=== PATIENT | female | born 1950 | race Caucasian/White ===

== ENCOUNTER → 2017-04-08 | Outpatient (CLI) | payer MEDICARE ==
[~2017-04-08] MED LIST: DENOSUMAB 60 MG/ML 1 ML SYRINGE SQ NR
[2017-04-08 10:29] VITALS: BP 162/96; PULSE 83; RESP 16; TEMP 98.3
== END | disposition home or self-care (01) ==
LOC: PROCWHC3 10:11
PROVIDERS: ATTEND Family Medicine
DX: M81.0 Age-related osteoporosis without current pathological fracture (principal)
CPT/HCPCS: 96372; J0897

== ENCOUNTER 2018-11-27 17:04 | Emergency (ER) | payer MEDICARE ==
[2018-11-27 17:21] VITALS: BP 164/123; PULSE 92; RESP 16; TEMP 98.4
--- NOTE | 2018-11-27 18:16 | XR ---
EXAMINATION TYPE: XR hand complete RT DATE OF EXAM: 11/27/2018 COMPARISON: NONE HISTORY: Thumb pain after fall TECHNIQUE: 3 views FINDINGS: There is nondisplaced transverse fracture across the proximal shaft of the proximal phalanx of the right thumb. There is no significant displacement. There is slight impaction. There is no dis location. There is spurring at the IP joint of the thumb. IMPRESSION: Acute fracture of the proximal phalanx of the right thumb. Osteoarthritis.
--- NOTE | 2018-11-27 18:41 | ED ---
General Adult HPI - General Chief complaint: Extremity Injury, Upper Stated complaint: Thumb injury Source: patient, RN notes reviewed, old records reviewed Mode of arrival: ambulatory Limitations: no limitations - History of Present Illness Initial comments: 68-year-old female patient past history of hypertension presents to ED with mechanical injury to right thumb. Patient states that she was walking upstairs when she stumbled and forward. Pt states that she had her thumb caught on stair , causing pain and mild deformity. Pt denies any other injury sustained, denies chest pain, shortness of breath, abdominal pain, nausea vomiting diarrhea, trauma to head, trauma and neck, loss of consciousness, use of blood thinners. Systemic: Pt denies fatigue, myalgia, fever/chills, rash. Pt denies weakness, night sweats, weight loss. Neuro: Pt denies headache, visual disturbances, syncope or pre-syncope. HEENT: Pt denies ocular discharge or irritation, otalgia, rhinorrhea, pharyngitis or notable lymphadenopathy. Cardiopulmonary: Pt denies chest pain, SOB, heart palpitations, dyspnea on exertion. Abdominal/GI: Pt denies abdominal pain, n/v/d. : Pt denies dysuria, burning w/ urination, frequency/urgency. Denies new onset urinary or bowel incontinence. MSK: Pt denies myalgia. Neuro: Pt denies new onset weakness, paresthesias. - Related Data Home Medications Medication Instructions Recorded Confirmed Pantoprazole Sodium [Protonix] 40 mg PO BID 04/08/17 04/08/17 Previous Rx's Medication Instructions Recorded Ibuprofen [Motrin] 600 mg PO Q6HR PRN #40 day 11/27/18 Allergies Allergy/AdvReac Type Severity Reaction Status Date / Time Sulfa (Sulfonamide Allergy Rash/Hives Verified 11/27/18 17:21 Antibiotics) Review of Systems ROS Statement: Those systems with pertinent positive or pertinent negative responses have been documented in the HPI. ROS Other: All systems not noted in ROS Statement are negative. Past Medical History Past Medical History: Hypertension History of Any Multi-Drug Resistant Organisms: None Reported Past Surgical History: Orthopedic Surgery Past Psychological History: No Psychological Hx Reported Smoking Status: Never smoker Past Alcohol Use History: None Reported Past Drug Use History: None Reported General Exam - General Exam Comments Initial Comments: Constitutional: NAD, AOX3, Pt has pleasant affect. HEENT: NC/AT, trachea midline, neck supple, no lymphadenopathy. Posterior pharynx non erythematous, without exudates. External ears appear normal, without discharge. Mucous membranes moist. Eyes PERRLA, EOM intact. There is no scleral icterus. No pallor noted. Cardiopulmonary: RRR, no murmurs, rubs or gallops, no JVD noted. Lungs CTAB in anterior and posterior salcedo. No peripheral edema. Abdominal exam: Abdomen soft and non-distended. Abdomen non-tender to palpation in all 4 quadrants. Bowel sounds active in LLQ. No hepatosplenomegaly. No ecchymosis Neuro: CN II-XII grossly intact. No nuchal rigidity. MSK: Patient has tenderness to palpation of phalanx of thumb. Patient has decreased abduction and abduction of thumb secondary to pain. Patient has full range of motion of digits 2-5 on exam. Pt sensation of digits 1-5 on R hand intact, capillary refill <2 seconds. No posterior calf tenderness bilaterally, homans sign negative bilaterally. Posterior tibialis and radial pulse +2 bilaterally. Sensation intact in upper and lower extremities. Full active ROM in upper and lower extremities, 5/5 stregnth. Limitations: no limitations Course Vital Signs 11/27/18 17:19 Temperature 98.4 F Pulse Rate 92 Respiratory 16 Rate Blood Pressure 164/123 O2 Sat by Pulse 98 Oximetry Medical Decision Making - Medical Decision Making 68-year-old female patient past history of hypertension presents to ED with mechanical injury to right thumb. Patient states that she was walking upstairs when she stumbled and forward. Pt states that she had her thumb caught on stair , causing pain and mild deformity. Denies any other injury, head trauma, LOC. Physical exam displayed Patient has tenderness to palpation of phalanx of thumb. Patient has decreased abduction and abduction of thumb secondary to pain. No other pathologic findings. Plain film of R hand displayed acute fracture of the proximal phalanx of the R thumb, osteoarthritis. Findings explained to pt in depth. Pt placed in thumb spica splint. Pt neurovascularly intact after splint placement. Pt to f/u with orthopedic and PCP consult in 1-2 days. Case discussed with Dr. Ann. Disposition Clinical Impression: Thumb fracture Disposition: HOME SELF-CARE Condition: Good Instructions: Thumb Fracture (ED) Additional Instructions: Patient to adhere to previously discussed treatment plan and will take medication(s) as directed. Patient to follow up with PCP in 1-2 days. Patient to return to ED if symptoms do not improve. Prescriptions: Ibuprofen [Motrin] 600 mg PO Q6HR PRN #40 day PRN Reason: Pain Is patient prescribed a controlled substance at d/c from ED?: No Referrals: Silvestre Hester DO [Primary Care Provider] - 1-2 days Regis Ramsey DO [Medical Doctor] - 1-2 days Time of Disposition: 19:22
== END 2018-11-27 19:28 | disposition home or self-care (01) ==
LOC: EC 17:04
DX: S62.511A Displaced fracture of proximal phalanx of right thumb, initial encounter for closed fracture (principal); M19.041 Primary osteoarthritis, right hand; Z79.899 Other long term (current) drug therapy; Z88.2 Allergy status to sulfonamides; W18.40XA Slipping, tripping and stumbling without falling, unspecified, initial encounter; Y93.01 Activity, walking, marching and hiking
CPT/HCPCS: 29125; 99284

== ENCOUNTER → 2022-11-20 | Outpatient (CLI) | payer MEDICARE ==
--- NOTE | 2022-11-20 11:51 | US ---
EXAMINATION TYPE: US liver DATE OF EXAM: 11/20/2022 COMPARISON: NONE CLINICAL HISTORY: 72-year-old female R74.01 ELEVATION OF LEVELS OF LIVER TRANSAMINASE L. TECHNIQUE: Multiple sonographic images of the right upper quadrant are obtained. FINDINGS: EXAM MEASUREMENTS: Liver Length: 10.5 cm Gallbladder Wall: 0.2 cm CBD: 0.3 cm Right Kidney: 9.6 x 3.5 x 4.9 cm Pancreas: Tail obscured by overlying bowel gas. Otherwise, unremarkable. Liver: wnl Gallbladder: wnl Evidence for sonographic Grant's sign: CBD: wnl Right Kidney: Inferior pole obscured by overlying bowel gas IMPRESSION: Limited assessment of the pancreatic tail and lower pole of the right kidney. Otherwise, unremarkable sonographic examination of the right upper quadrant.
== END | disposition home or self-care (01) ==
LOC: RADUSWWP 09:18
PROVIDERS: ATTEND Family Medicine
DX: R74.01 Elevation of levels of liver transaminase levels (principal)
CPT/HCPCS: 76705

== ENCOUNTER → 2022-12-11 | Outpatient (CLI) | payer MEDICARE ==
--- NOTE | 2022-12-11 10:44 | CT ---
EXAMINATION TYPE: CT chest wo con DATE OF EXAM: 12/11/2022 COMPARISON: Chest x-ray 11/30/2022 HISTORY: Chronic cough CT DLP: 208 mGycm. Automated Exposure Control for Dose Reduction was Utilized. TECHNIQUE: CT scan of the thorax is performed without IV contrast. FINDINGS: LUNGS: The lungs are grossly clear, there is no concerning solid pneumonia identified. There is no pleural effusion or pneumothorax seen. The tracheobronchial tree is patent. Emphysematous changes ar e seen. There is mild peripheral interlobular septal thickening greater involvement involving the low er lobes compatible with mild chronic interstitial lung disease such as pulmonary fibrosis. There is mild central and basilar bronchiectasis. Subsegmental changes seen pleural thickening on the left ate lectasis. There is a 4 mm nodule left lower lobe axial image 36 There are multiple additional subpleural nodules seen bilaterally measuring 5 mm or less too small to characterize. MEDIASTINUM: Lack of IV contrast is noted to limit evaluation for mediastinal and especially hilar ad enopathy. There are no definitive greater than 1 cm hilar or mediastinal lymph nodes. No cardiomega ly or pericardial effusion is seen. OTHER: Hypertrophic and degenerative changes spine. Surgical clip in the gastrium is seen and there i s a small hiatal hernia. IMPRESSION: 1. COPD with changes of mild chronic interstitial pulmonary fibrosis. 2. Multiple 5 mm left pulmonary nodules too small to characterize but likely benign recommend 12 cuate h follow-up.
== END | disposition home or self-care (01) ==
LOC: RADCTMAIN 09:31
PROVIDERS: ATTEND Internal Medicine Critical Care Medicine
DX: J44.9 Chronic obstructive pulmonary disease, unspecified (principal); J84.10 Pulmonary fibrosis, unspecified; R91.8 Other nonspecific abnormal finding of lung field
CPT/HCPCS: 71250

== ENCOUNTER 2022-12-12 13:13 | Day surgery (SDC) | payer MEDICARE ==
[2022-12-10 09:35] VITALS: BMI 23.9
[~2022-12-12 13:13] MED LIST changes: +ATROPINE SULFATE 0.4 MG/ML 1 ML VIAL IM ONE; -DENOSUMAB 60 MG/ML 1 ML SYRINGE SQ NR; +LACTATED RINGERS 1,000 ML IV SCH; +LIDOCAINE 1% (10MG/ML) FOR IV START INTRADERMA PRN
[2022-12-12 13:41] VITALS: RESP 18; TEMP 98.8
[2022-12-12] MEDS ORDERED: LACTATED RINGERS 1,000 ML IV ONE (13:41)
[2022-12-12] MEDS ORDERED: PROPOFOL 10 MG/ML 20 ML VIAL IV ONE (14:12)
[2022-12-12] MEDS ORDERED: MIDAZOLAM 2 MG/2 ML VIAL ONE (14:12)
[2022-12-12] MEDS ORDERED: fentaNYL (PF) 50 MCG/ML 2 ML AMP ONE (14:12)
[2022-12-12] MEDS ORDERED: GLYCOPYRROLATE 0.2 MG/ML 2 ML VIAL ONE (14:12)
[2022-12-12] MEDS ORDERED: LIDOCAINE 2% INJ 20 MG/ML (2 ML VIAL) ONE (14:12)
[2022-12-12] MEDS ORDERED: KETAMINE 10 MG/ML 20 ML VIAL ONE (14:12)
[2022-12-12] MEDS ORDERED: LIDOCAINE 2% (PF) 20 MG/ML 5 ML VIAL INHALATION ONE (14:18)
[2022-12-12 15:08] VITALS: BP 129/90; PULSE 114
--- NOTE | 2022-12-12 18:53 | OP ---
OPERATIVE REPORT PROCEDURES PERFORMED: Bronchoscopy, airway examination, therapeutic lavage, BAL right middle lobe. PREOPERATIVE DIAGNOSIS: Chronic cough. POSTOPERATIVE DIAGNOSIS: Chronic cough. FIRST BACK UP SCAN COORDINATOR: Dr. Briseida Reyes. The patient's procedure took place in room #[facility]. There was informed consent and universal timeout. ANESTHESIA PROVIDED: General anesthesia for this patient. DESCRIPTION OF PROCEDURE: After the patient was adequately sedated and being fully monitored, the bronchoscope was inserted through the right nostril. It passed through the nasopharynx into the oropharynx. It then passed into the hypopharynx. The hypopharyngeal structures all appeared normal including the anterior commissure, true cords, false cords, arytenoids, piriform sinuses, right and left vallecula, and epiglottis. Next, after topicalization, the bronchoscope was pushed through the glottic opening into the trachea. Trachea appeared relatively normal. There was some mild tracheomalacia. Tracheal romaine was sharp. Right and left mainstem were topicalized. Right upper lobe and its 3 segments, right middle lobe and its 2 segments, right lower lobe and its 5 segments, the left upper lobe proper and its 2 segments, the lingula and its 2 segments and the left lower lobe and its 4 segments all appeared relatively normal. There was mild bronchitis throughout. There was mild airway erythema and hyperemia. There was no dominant mass or tumor. There are [id number] secretions throughout. They were suctioned. Next, the bronchoscope was wedged into the right middle lobe. A formal BAL took place. The fluid will be sent for analysis. The patient tolerated the procedure well. The bronchoscope was then withdrawn. There were no immediate complications. The patient will be recovered. MMODL / IJN: [id number] /
[2022-12-17 14:35] LABS: Appearance,BF Slightly Hazy
== END 2022-12-12 15:18 | disposition home or self-care (01) ==
LOC: ORWHC2ENDO 13:13
PROVIDERS: ATTEND Internal Medicine Critical Care Medicine
DX: R05.3 Chronic cough (principal); I10 Essential (primary) hypertension; K21.9 Gastro-esophageal reflux disease without esophagitis; Z79.811 Long term (current) use of aromatase inhibitors; Z88.2 Allergy status to sulfonamides
CPT/HCPCS: 87798 ×3; 87496; 87498; 87529; 88108; 88305; 89050; 87252; 87502; 87634; 87070; 87205; 87116; 87102; 87206; 31624; J2250; J0461; J3010; J2704; J2001 ×2

== ENCOUNTER → 2024-03-16 | Outpatient (CLI) | payer MEDICARE ==
--- NOTE | 2024-03-20 11:40 | CT ---
EXAMINATION TYPE: CT chest wo con CT DLP: 1517 mGycm, Automated exposure control for dose reduction was used. DATE OF EXAM: 03/16/2024 1:20 PM COMPARISON: Chest radiograph from same day. Multiple CTs of the chest with most recent on . CLINICAL INDICATION:Female, 73 years old with history of J84.9 interstitial lung disease; PHH, f/u [place] D TECHNIQUE: Multiple axial images were obtained through the chest. Sagittal and coronal reformats were created for review. Contrast used: mL of (None if empty) Oral contrast used: (None if empty) FINDINGS: LUNGS: The lungs are grossly clear, there is no concerning consolidating pneumonia identified. There is no pleural effusion or pneumothorax seen. The tracheobronchial tree is patent. Emphysematous changes are seen. There is mild peripheral interlobular septal thickening greater invol vement involving the lower lobes compatible with mild chronic interstitial lung disease such as pulmo nary fibrosis. This finding is subtle. There is mild central and basilar bronchiectasis. Subsegmental changes seen pleural thickening on the left atelectasis. There is a 4 mm nodule left lower lobe reidentified. There are multiple additional subpleural nodule s seen bilaterally measuring 5 mm or less too small to characterize. MEDIASTINUM: Lack of IV contrast is noted to limit evaluation for mediastinal and especially hilar ad enopathy. There are no definitive greater than 1 cm hilar or mediastinal lymph nodes. No cardiomegaly or pericardial effusion is seen. OTHER: Hypertrophic and degenerative changes spine. Surgical clip in the gastrium is seen and there i s a small hiatal hernia. IMPRESSION: 1. COPD with subtle changes of mild chronic interstitial pulmonary fibrosis. 2. Multiple 5 mm left pulmonary nodules too small to characterize but likely benign. If the patient meets criteria for low dose CT lung screening, recommend 12 month follow-up.
== END | disposition home or self-care (01) ==
LOC: RADCTMAIN 12:28
PROVIDERS: ATTEND Internal Medicine Critical Care Medicine
DX: J44.9 Chronic obstructive pulmonary disease, unspecified (principal); J84.10 Pulmonary fibrosis, unspecified; J84.9 Interstitial pulmonary disease, unspecified; R91.8 Other nonspecific abnormal finding of lung field
CPT/HCPCS: 71250